=== PATIENT | female | born 1930 | race Caucasian/White ===

== ENCOUNTER 2018-03-22 08:58 | Emergency (ER) | payer MEDICARE, BC ==
--- NOTE | 2018-03-22 09:15 | UC ---
Upper Extremity HPI - HPI Summary HPI Summary: pt was cleaning her home and tripped on the vacuum cord causing her to fall. she reached out. she has ongoing soreness to the back of her R upper arm. did not hit head and denies neck/back pain. denies any other injuries. - History of Current Complaint Stated Complaint: s/p fall-rt arm injury Time Seen by Provider: 03/22/18 09:00 Hx Obtained From: Patient Onset/Duration: Sudden Onset Severity Currently: Mild Aggravating Factor(s): Movement Alleviating Factor(s): Rest Associated Signs And Symptoms: Negative: Swelling, Redness, Bruising, Weakness, Numbness/Tingling - Risk Factors DVT Risk Factors: Negative Septic Arthritis Risk Factor: Negative - Allergies/Home Medications Allergies/Adverse Reactions: Allergies Allergy/AdvReac Type Severity Reaction Status Date / Time No Known Allergies Allergy Verified 03/22/18 09:16 Home Medications: Home Medications Multivit-Min/Iron/Folic/Lutein [Centrum Silver Women Tablet] 1 each PO DAILY [History Confirmed 03/22/18] PMH/Surg Hx/FS Hx/Imm Hx Endocrine History: Dyslipidemia Cardiovascular History: Hypertension - Surgical History Surgical History: Yes Surgery Procedure, Year, and Place: hysterectomy, L carpel tunnel, R knee - Family History Known Family History: Positive: Other - [place] - Social History Occupation: Retired Lives: Alone Alcohol Use: None Substance Use Type: None Smoking Status (MU): Never Smoked Tobacco - Immunization History Vaccination Up to Date: Yes Review of Systems Constitutional: Negative Skin: Negative Eyes: Negative ENT: Negative Respiratory: Negative Cardiovascular: Negative Gastrointestinal: Negative Genitourinary: Negative Motor: Negative Neurovascular: Negative Musculoskeletal: Other: - Pain rue Neurological: Negative Psychological: Negative Is Patient Immunocompromised?: No All Other Systems Reviewed And Are Negative: Yes Physical Exam Triage Information Reviewed: Yes Appearance: Well-Appearing Vital Signs Reviewed: Yes Eyes: Positive: Conjunctiva Clear ENT: Positive: Normal ENT inspection Neck: Positive: Supple, Nontender, No Lymphadenopathy, Other: - no c-spine tenderness Respiratory: Positive: Chest non-tender, Lungs clear, Normal breath sounds Cardiovascular: Positive: RRR, No Murmur Abdomen Description: Positive: Nontender, No Organomegaly, Soft Bowel Sounds: Positive: Present Musculoskeletal: Positive: Other: - RUE: no gross deformity, swelling or discoloration. tender over mid triceps. rest of arm non tender and full s/v/m is intact. Back is non tender. Neurological: Positive: Alert Psychological: Positive: Age Appropriate Behavior Skin Exam: Normal Diagnostics - Radiology No standard instances Xray Interpretation: No Acute Changes - no fx Radiology Interpretation Completed By: Radiologist Re-Evaluation - Re-Evaluation Second Eval Re-Evaluation Time: 10:20 Change: Unchanged - REPEAT BP 192/96. PT DENIES HEADACHE, CP, SOB. TOOK HER BP MEDS AT 7:30 AM TODAY. HAS BEEN TAKING ALEVE SINCE HER FALL. I ADVISED SHE STOP THIS AND PT AGREES. Upper Extremity Course/Dx - Course Course Of Treatment: pain meds declined, took aleve captain cannery tender-7:30 am. hx htn, will recheck BP with manual cuff once pt is settled. xray=no fx or dislocation, exam c/w tricep strain but function intact. will refer to PT. pt's BP d/w Dr Smith. since no hypertensive urgency/emergency and hx htn, will have pt f/u with her pcp this saturday for a recheck of her BP. also, she will d/c all nsaid use and tx pain with tylenol as this may be the cause of her increase BP today. - Differential Dx/Diagnosis Provider Diagnoses: Strain R upper arm(tricep). Poorly controlled HTN Discharge - Sign-Out/Discharge Documenting (check all that apply): Discharge - Discharge Plan Condition: Stable Disposition: HOME Patient Education Materials: Muscle Strain (ED), Hypertension (ED) Referrals: Family [facility] [Primary Care Provider] - 2 Days Additional Instructions: STOP ALL MOTRIN, ALEVE, IBUPROFEN. TAKE TYLENOL PER LABEL NEEDED FOR PAIN FOLLOW UP WITH YOUR DOCTOR THIS SATURDAY FOR A RECHECK OF YOUR BP. - Billing Disposition and Condition Condition: STABLE Disposition: HOME
[2018-03-22 09:21] VITALS: BP 203/91
--- NOTE | 2018-03-22 10:08 | RAD ---
Indication: Right humerus injury. 2 views of the right humerus demonstrates no definite fracture. Degenerative changes of the glenohumeral joint is noted. IMPRESSION: No fracture of the right humerus is noted.
== END 2018-03-22 10:40 | disposition home or self-care (01) ==
LOC: UCCORT 08:58
DX: S46.311A Strain of muscle, fascia and tendon of triceps, right arm, initial encounter (principal); W01.0XXA Fall on same level from slipping, tripping and stumbling without subsequent striking against object, initial encounter; Y93.89 Activity, other specified; Y92.009 Unspecified place in unspecified non-institutional (private) residence as the place of occurrence of the external cause; I10 Essential (primary) hypertension
CPT/HCPCS: 99201; G0463